=== PATIENT | female | born 1990 | race Caucasian/White ===

== ENCOUNTER 2017-07-11 21:02 | Emergency (ER) | payer OTHER, SELFPAY ==
[2017-07-11 21:02] VITALS: BP 133/76; PULSE 75; RESP 20; TEMP 36.8; O2SAT 99; BMI 34.1
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
[2017-07-12 01:15] VITALS: BP 155/40; PULSE 115; O2SAT 95
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
[2017-07-14 04:09] LABS: Hep A Ab, IgM Negative (Negative); Hepatitis B Core Antibody IgM Negative (Negative); Hepatitis B Surface Antigen Negative (Negative)
[2017-07-14 13:54] LABS: Hepatitis C Antibody <0.1 s/co ratio (0.0-0.9)
[2017-07-16 17:12] LABS: Neisseria gonorrhoeae, NAA Negative (Negative)
== END 2017-07-12 01:15 | disposition home or self-care (01) ==
PROVIDERS: Emergency Provider Emergency Medicine
DX: T76.21XA Adult sexual abuse, suspected, initial encounter (principal)
CPT/HCPCS: 80074; 99284